=== PATIENT | male | born 1985 | race African-American/Black ===

== ENCOUNTER 2020-04-18 13:27 | Emergency (ER) | payer MEDICAID ==
[~2020-04-18] VITALS: Ht 175.3 cm; Wt 65.8 kg
[2020-04-18 13:52] VITALS: BP 130/90
[2020-04-18] MEDS ORDERED: METOCLOPRAMIDE 10MG TABLET PO PRN (14:00)
[2020-04-18] MEDS ORDERED: KETOROLAC 30 MG/1 ML IM ONE (14:00)
== END 2020-04-18 14:25 | disposition home or self-care (01) ==
LOC: ED 14:00
DX: K02.9 Dental caries, unspecified (principal); G44.229 Chronic tension-type headache, not intractable; F17.210 Nicotine dependence, cigarettes, uncomplicated
CPT/HCPCS: 64400; 96372; 99284; J1885